=== PATIENT | male | born 1975 | race Caucasian/White ===

== ENCOUNTER 2020-06-22 20:40 | Emergency (ER) | payer OTHER ==
[~2020-06-22] VITALS: Ht 177.8 cm; Wt 98.9 kg
[2020-06-23] MEDS ORDERED: DOLOGESIC 500-1 EACH PO (00:32)
== END 2020-06-23 01:58 | disposition home or self-care (01) ==
LOC: ER 20:40
DX: S13.4XXA Sprain of ligaments of cervical spine, initial encounter (principal); S00.33XA Contusion of nose, initial encounter; S00.83XA Contusion of other part of head, initial encounter; S60.222A Contusion of left hand, initial encounter; S80.01XA Contusion of right knee, initial encounter; S40.012A Contusion of left shoulder, initial encounter; M24.444 Recurrent dislocation, right finger; R04.0 Epistaxis; M77.32 Calcaneal spur, left foot; M54.5 Low back pain; M79.642 Pain in left hand; M79.641 Pain in right hand; M25.572 Pain in left ankle and joints of left foot; R07.89 Other chest pain; R10.12 Left upper quadrant pain; V49.88XA Car occupant (driver) (passenger) injured in other specified transport accidents, initial encounter; Y93.89 Activity, other specified; Y92.413 State road as the place of occurrence of the external cause; Y99.8 Other external cause status